=== PATIENT | male | born 2000 | race Caucasian/White ===

== ENCOUNTER 2022-10-29 21:10 | Emergency (ER) | payer MEDICARE ==
[~2022-10-29] VITALS: Ht 180.3 cm; Wt 72.6 kg
[2022-10-29] MEDS ORDERED: PENICILLIN-VK500 MG PO (21:52)
[2022-10-29] MEDS ORDERED: Motrin,Rufen800 MG PO (21:52)
== END 2022-10-29 22:31 | disposition home or self-care (01) ==
LOC: ED 21:10
DX: K04.7 Periapical abscess without sinus (principal)